=== PATIENT | male | born 2000 | race Caucasian/White ===

== ENCOUNTER → 2021-12-12 | Emergency (ER) | payer BC ==
[~2021-12-12] MED LIST: Ibuprofen 600 MG Tab PO ONE
[2022-01-05 14:49] LABS: ANION GAP 9.5 meq/L (7-15); CHLORIDE,CL 102 mmol/L (98-107); ESTIMATED GFR 101 mL/min (>=60); SODIUM,NA 139 mmol/L (136-145)
[2022-01-05 14:50] LABS: CORONAVIRUS COVID-19 NAA POSITIVE (NEGATIVE); RESPIRATORY SYNCYTIAL VIR NAA NEGATIVE (NEGATIVE)
== END ==
LOC: LL.ED 10:12
DX: U07.1 COVID-19 (principal); Z88.0 Allergy status to penicillin; Z91.010 Allergy to peanuts; Z91.012 Allergy to eggs
CPT/HCPCS: 0241U; 36415; 71046; 80053; 81003; 83605; 83735; 85025; 87081; 87430; 99284; A9270-GY